=== PATIENT | female | born 1950 | race Caucasian/White ===

== ENCOUNTER → 2017-05-15 | Outpatient (CLI) | payer MEDICARE, OTHER ==
[~2017-05-15] MED LIST: CHOL100013 PO; ESTR0.5T PO; GLUT25PO MC; LORA-434 PO; METO-239 PO; PROG200C2 PO; THYR30TA PO; UBIQ100C3 PO; ZOLP10TA PO; [UNRECOGNIZED DRUG - CODE] MC; [UNRECOGNIZED DRUG - CODE] MC; [UNRECOGNIZED DRUG - OTHER]; [UNRECOGNIZED DRUG - OTHER]
--- NOTE | 2017-05-15 16:21 | RAD ---
Left RIBS with chest, 4 views, 05/15/2017: History: Rib pain, injury No rib fracture is identified. There is no evidence of underlying pneumothorax, hemothorax or pulmonary infiltrate. The heart size is normal. There are mild scattered degenerative changes in the thoracic spine. IMPRESSION: No acute left rib abnormality is detected.
== END | disposition home or self-care (01) ==
LOC: PMG 15:16
PROVIDERS: ATTEND Physician Assistant Medical
DX: R07.81 Pleurodynia (principal)
CPT/HCPCS: 71101

== ENCOUNTER → 2019-11-04 | Outpatient (CLI) | payer MEDICARE, OTHER ==
[~2019-11-04] MED LIST changes: +LORA-254 PO; -LORA-434 PO; +PROG200C10 PO; -PROG200C2 PO
--- NOTE | 2019-11-04 16:48 | RAD ---
EXAM: Pelvis and right hip, 3 views. HISTORY: Pain. COMPARISON: None. FINDINGS: A frontal view the pelvis and 2 views of the right hip are obtained. There is no fracture, dislocation or subluxation. The femoral heads are normal in configuration. IMPRESSION: No acute osseous finding. Electronically signed by: Jennyfer Cadet MD (11/04/2019 4:45 PM) [id number]
== END | disposition home or self-care (01) ==
LOC: DXRAD 16:12
PROVIDERS: ATTEND Physician Assistant Medical
DX: M25.551 Pain in right hip (principal)
CPT/HCPCS: 73502

== ENCOUNTER → 2021-03-07 | Outpatient (CLI) | payer MEDICARE, OTHER ==
[~2021-03-07] MED LIST changes: +UBIQ100C2 PO; -UBIQ100C3 PO
--- NOTE | 2021-03-07 17:07 | RAD ---
EXAM: XR CERVICAL SPINE 2-3V 03/07/2021 3:51 PM CLINICAL INDICATION: Neck pain, fall COMPARISON: None TECHNIQUE: AP, lateral, and odontoid views of cervical spine there is no acute fracture. FINDINGS: There is mild cervical kyphosis. No listhesis. Mild disc space narrowing with tiny anterior aspect of the cervical spine. The base of the dens appears intact and symmetric in the ring of C1. N o significant facet arthrosis. Prevertebral soft tissue is normal. IMPRESSION: 1. No acute radiographic abnormality of the cervical spine. 2. Mild degenerative disc disease. 3. Mild cervical kyphosis. Electronically signed by: Radha Davis MD (03/07/2021 5:04 PM) [id number]
== END ==
LOC: RAD 15:42
PROVIDERS: ATTEND Nurse Practitioner Family
DX: M50.30 Other cervical disc degeneration, unspecified cervical region (principal); M48.02 Spinal stenosis, cervical region; M40.292 Other kyphosis, cervical region
CPT/HCPCS: 72040